=== PATIENT | male | born 1960 | race Caucasian/White ===

== ENCOUNTER 2024-07-18 14:52 | Emergency (ER) | payer OTHER, SELFPAY ==
[2024-07-18 15:24] VITALS: BP 134/79
--- NOTE | 2024-07-18 15:28 | ED.GENMED ---
ED Provider Triage
<Alvin Kumar PA-C - Last Filed: 07/18/24 15:29>
-
Patient seen by provider in Triage?: Seen in Triage
63-year-old male with complicated cardiac history including multiple valve replacements A-fib on Coumadin with pacemaker. Follows with cardiology through [facility]. Never been here before. Presents with chest pain.
EKG reviewed which shows a paced rhythm. Will check labs at triage including CBC CMP troponin INR and chest x-ray ordered. Looks nontoxic and stable otherwise
Seen by provider in triage. Warrants further assessment
History of Present Illness
<Alvin Kumar PA-C - Last Filed: 07/18/24 15:29>
General
Chief Complaint: Chest Pain
Time Seen by Provider: 07/18/24 18:42
<Marta Eldridge DO - Last Filed: 07/18/24 23:08>
History of Present Illness
History of Present Illness:
63-year-old male with history of indigestion and cardiac valvular issues presenting to the emergency department for chest pain. Patient reports back in November he had extensive cardiac procedure completed with multiple valve replacement. Patient also
with history of atrial fibrillation, on Coumadin. No since the middle of June, has had some issues with indigestion, however last evening felt like it was worse with intermittent pain in the epigastric region radiating up to the chest, often
relieved with belching. 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 Denies any present chest pain. Denies difficulty breathing. Denies fever or recent illness. Does note that he had pasta
sauce last evening. Denies additional acute medical complaints
Phy Exam
<Marta Eldridge DO - Last Filed: 07/18/24 23:08>
Physical Exam
Physical Exam:
General: Well-appearing, no clinical signs of dehydration, nontoxic and in no acute distress
HEENT: protecting airway
Neck: appears supple
CV: Normal heart rate, regular rhythm, positive murmur
Resp: No accessory muscle use, no increased work of breathing, lungs clear to auscultation bilaterally
Abd: Soft and non-distended, no tenderness to palpation
Extremities: No deformities, no swelling, no erythema
Neuro: alert, no focal neurologic deficit
: deferred
Rectal: deferred
Psych: Normal affect
Skin: Intact
Scores
<Marta Eldridge DO - Last Filed: 07/18/24 23:08>
Heart Score for Chest Pain Patients
STEMI patient?: No
History: Slightly or Non-Suspicious
ECG: Nonspecific Repolarization
Age: >45 - <65 years
Risk Factors: 1 or 2 Risk Factors
Troponin: </= Normal Limit
Heart Score for Chest Pain Patients: 3
Heart Score Risk: 2.5% MACE over next 6 weeks
Course
<Alvin Kumar PA-C - Last Filed: 07/18/24 15:29>
Orders/Labs/Results
Orders:
Orders
07/18/24 14:53
Electrocardiogram (*1) Urgent
Reason for Study: Chest Pain
EKG- Treatment ONCE
07/18/24 15:26
CR Chest - 2 Views Urgent
Comment:
Reason For Exam: chest pain
07/18/24 15:32
Complete Blood Count/With Diff Urgent
Comprehensive Metabolic Panel Urgent
Prothrombin Time Urgent
Troponin I Urgent
07/18/24 19:34
Electrocardiogram (*1) Urgent
Reason for Study: Chest Pain
EKG- Treatment ONCE
07/18/24 20:05
Troponin I Urgent
Abnormal Lab Results
07/18/24
15:32
RDW 14.6 H %
(11.5-14.5)
MPV 10.5 H fL
(7.4-10.4)
Absolute Neuts (auto) 6.8 H 10^3/uL
(1.4-6.5)
Absolute Monos (auto) 0.9 H 10^3/uL
(0.1-0.6)
Lymphocytes % 15.8 L %
(20.5-51.1)
Monocytes % 9.5 H %
(1.7-9.3)
PT 25.4 H Sec
(11.4-14.6)
BUN 28 H mg/dl
(9-20)
Glucose 102 H mg/dl
(70-99)
07/18/24 15:32
07/18/24 15:32
Vital Signs
Initial and Last Documented VS:
Initial Vital Signs
Temp Pulse Resp BP Pulse Ox
98.2 F 73 16 134/79 98
07/18/24 15:24 07/18/24 15:24 07/18/24 15:24 07/18/24 15:24 07/18/24 15:24
Last Documented Vital Signs
Temp Pulse Resp BP Pulse Ox
98.2 F 70 10 130/64 96
07/18/24 15:24 07/18/24 20:45 07/18/24 20:45 07/18/24 20:00 07/18/24 20:45
<Marta Eldridge, DO - Last Filed: 07/18/24 23:08>
Orders/Labs/Results
Orders:
Orders
07/18/24 14:53
Electrocardiogram (*1) Urgent
Reason for Study: Chest Pain
EKG- Treatment ONCE
07/18/24 15:26
CR Chest - 2 Views Urgent
Comment:
Reason For Exam: chest pain
07/18/24 15:32
Complete Blood Count/With Diff Urgent
Comprehensive Metabolic Panel Urgent
Prothrombin Time Urgent
Troponin I Urgent
07/18/24 19:34
Electrocardiogram (*1) Urgent
Reason for Study: Chest Pain
EKG- Treatment ONCE
07/18/24 20:05
Troponin I Urgent
Abnormal Lab Results
07/18/24
15:32
RDW 14.6 H %
(11.5-14.5)
MPV 10.5 H fL
(7.4-10.4)
Absolute Neuts (auto) 6.8 H 10^3/uL
(1.4-6.5)
Absolute Monos (auto) 0.9 H 10^3/uL
(0.1-0.6)
Lymphocytes % 15.8 L %
(20.5-51.1)
Monocytes % 9.5 H %
(1.7-9.3)
PT 25.4 H Sec
(11.4-14.6)
BUN 28 H mg/dl
(9-20)
Glucose 102 H mg/dl
(70-99)
07/18/24 15:32
07/18/24 15:32
Vital Signs
Initial and Last Documented VS:
Initial Vital Signs
Temp Pulse Resp BP Pulse Ox
98.2 F 73 16 134/79 98
07/18/24 15:24 07/18/24 15:24 07/18/24 15:24 07/18/24 15:24 07/18/24 15:24
Last Documented Vital Signs
Temp Pulse Resp BP Pulse Ox
98.2 F 70 10 130/64 96
07/18/24 15:24 07/18/24 20:45 07/18/24 20:45 07/18/24 20:00 07/18/24 20:45
<Marta Eldridge, DO - Last Filed: 07/18/24 23:08>
MDM/Problems Addressed
MDM/Problems Addressed:
63-year-old male with history of indigestion and valvular cardiac issues on Coumadin presenting for epigastric pain and chest pain since last evening. Vital signs are normal.
On exam patient is well-appearing, no acute distress or discomfort. He is currently asymptomatic. EKG obtained at patient's arrival, shows ventricular paced rhythm with some depressions V5-V6. Patient denying any present chest pain. However,
does have underlying cardiac issues. Discussed results of EKG, does note that he chronically has some abnormalities on his EKG, not here for comparison. Initial troponin is within normal limits. Do suspect possible gastric pathology versus
indigestion. Notes that pain is relieved after belching. Plan for repeat troponin and EKG
20:45 -repeat troponin is within normal limits and repeat EKG is unchanged. Patient remains asymptomatic. Feel stable for discharge, however with close interval follow-up with cardiology. Notes that he has an appointment on Sunday. Strict
return precautions communicated and patient verbalized understanding
<Marta Eldridge DO - Last Filed: 07/18/24 23:08>
*EKG
Interpreted by ED Provider?: Yes
EKG Intrepretation Date: 07/18/24
EKG Intrepretation Time: 19:46
Interpretation: abnormal
Comparison EKG: no comparison EKG present
Heart Rate: 70
Rate: normal
Rhythm: ventricular paced
Sylvester: normal axis
Interval: normal interval
Ischemia: ST depression (V5-V6)
*Critical Care Note
Total Time (30-74mins, 75-104mins- exclusive of procedures): Not Applicable
ED Attending Note
<Alvin Kumar PA-C - Last Filed: 07/18/24 15:29>
-
Portions of this chart may have been created with voice recognition software.� Occasional wrong word or��sound alike� substitutions may have occurred due to the inherent limitations of voice recognition software.
Discharge Plan
Departure
Patient Disposition: Home (Routine Discharge)
Date of Disposition: 07/18/24
Time of Disposition: 20:51
Patient with high blood pressure during this ER visit?: No
Condition: Good
Discharge Problem:
Chest pain
Instructions: Chest pain - Discharge instructions
Referrals:
NONE,* [Family Provider] -
Activity Restrictions/Additional Instructions:
You were seen in the emergency department for chest pain
You were found to have normal blood work and EKG. We suspect that your symptoms could be secondary to gastric reflux. Please follow-up closely with your poultry tender
Please follow-up closely with your primary care physician.
Return to the emergency department for any worsening of your symptoms, or any development of chest pain, difficulty breathing, abdominal pain with persistent vomiting and inability to tolerate food or liquid by mouth (concern for dehydration),
weakness, headache or confusion, fever greater than 100.4, or any additional symptoms that are concerning to you.
Thank you for choosing [facility].
Interventions
Interventions:
*Risk Screen - Suicide Last Done: 07/18/24 15:24
*General Assessment Last Done: 07/18/24 19:54
*Neglect/Abuse Screening Last Done: 07/18/24 15:24
ED- Fall Risk Assessment Last Done: 07/18/24 19:59
*ED COVID-19 Vaccine History Last Done: 07/18/24 19:54
*Nursing Disposition Last Done: 07/18/24 20:59
ED- Cardiac Assessment Last Done: 07/18/24 19:59
Discharge Date and Time
Discharge Date/Time: 07/18/24 20:59
Print Language: [place]
[2024-07-18 15:42] LABS: % Basophils 0.4 % (0-2); % Eosinophils 0.9 % (0-6); % Immature Granulocytes 0.3 % (0-0.5); % Lymphocytes 15.8 % (20.5-51.1); % Monocytes 9.5 % (1.7-9.3); % Neutrophils 73.1 % (42.2-75.2); Absolute Eosinophils 0.1 10^3/uL (0-0.7); Absolute Lymphocytes 1.5 10^3/uL (1.2-3.4); Absolute Monocytes 0.9 10^3/uL (0.1-0.6); Absolute Neutrophils 6.8 10^3/uL (1.4-6.5); Hematocrit 40.8 % (39.0-52.0); Hemoglobin 13.8 g/dL (13.0-18.0); Mean Corp Hgb Conc. 33.8 g/dL (33.0-37.0); Mean Corpuscular Hgb 29.3 pg (27.0-31.0); Mean Corpuscular Volume 86.6 fL (80.0-94.0); Mean Platelet Volume 10.5 fL (7.4-10.4); Nucleated Red Blood Cells % 0 % (-); Platelet Count 196 10^3/uL (130-400); Red Blood Cell Count 4.71 10^6/uL (4.70-6.10); Red Cell Dist. Width 14.6 % (11.5-14.5); White Blood Cell Count 9.3 10^3/uL (4.8-10.8)
[2024-07-18 15:55] LABS: PT 25.4 Sec (11.4-14.6)
[2024-07-18 15:56] LABS: ALT (SGPT) 27 U/L (0-50); AST (SGOT) 32 U/L (17-59); Alkaline Phosphatase 103 U/L (38-126); Blood Urea Nitrogen 28 mg/dl (9-20); Calcium 9.9 mg/dl (8.4-10.2); Carbon Dioxide 27 mmol/L (22-30); Chloride 99 mmol/L (98-107); Glucose 102 mg/dl (70-99); Potassium 4.4 mmol/L (3.5-5.1); Sodium 136 mmol/L (135-145); Total Bilirubin 0.9 mg/dl (0.2-1.3); eGFR > 60.00
[2024-07-18 16:03] LABS: Troponin I 0.021 ng/ml
[2024-07-18 19:54] VITALS: BMI 26.3
[2024-07-18 19:56] VITALS: BP 128/79
[2024-07-18 20:00] VITALS: BP 130/64
== END 2024-07-18 20:59 | disposition home or self-care (01) ==
LOC: EMR 14:52
PROVIDERS: Physician Assistant; EMERGENCY PHYSICIAN Student in an Organized Health Care Education/Training Program
DX: R07.9 Chest pain, unspecified (principal); I48.91 Unspecified atrial fibrillation; Z95.2 Presence of prosthetic heart valve; Z79.01 Long term (current) use of anticoagulants
CPT/HCPCS: 99285; 71046; 80053; 84484; 85025; 85610; 93005